=== PATIENT | female | born 2000 | race Two or more races ===

== ENCOUNTER → 2024-12-18 | Outpatient (CLI) | payer OTHER, SELFPAY ==
--- NOTE | 2024-12-18 16:51 | XR_ITS ---
EXAMINATION: Cervical spine, 5 views Technique: Cervical spine AP, AP odontoid, lateral, bilateral obliques, 5 views Exam date and time: December 18, 2024, 1703 hours INDICATIONS: Neck pain beginning 3 days ago. FINDINGS: Satisfactory alignment cervical vertebral bodies. No cervical fracture. No significant cervical disc narrowing No neural foraminal stenosis IMPRESSION: No cervical fracture or arthritic change
== END | disposition home or self-care (01) ==
PROVIDERS: PCP Physician Assistant; Referring Provider Physician Assistant; Visit Provider Physician Assistant
DX: S13.4XXA Sprain of ligaments of cervical spine, initial encounter (principal); X58.XXXA Exposure to other specified factors, initial encounter
CPT/HCPCS: 72050